=== PATIENT | female | born 1975 | race Caucasian/White ===

== ENCOUNTER 2016-08-20 16:41 | Emergency (ER) | payer OTHER ==
[~2016-08-20] VITALS: Ht 160 cm; Wt 104.5 kg
[~2016-08-20 16:41] MED LIST: BACTROBAN 22GM22 GM TP; CEFTIN 250250 MG/TAB PO; LEVAQUIN 2250 MG/TAB; LEVAQUIN 2250 MG/TAB PO; LOMOTIL 0.025 M1 TAB PO; LORTAB 7.5/5001 TAB PO; MACROBID 1100 MG/CAP PO; MS CONTIN 660 MG/TAB PO; MULTIPLE VITAMI1 TAB PO; NEXIUM 20MG20 MG PO; NORCO 325 MG-101 TAB PO; NORCO 325 MG-51 TAB PO; NORCO 325 MG-7.1 TAB; NORCO 325 MG-7.1 TAB PO; PERCOCET 325 MG1 TA2 PO; PERCOCET 325 MG1 TAB PO; PHENERGAN 25 TA25 MG PO; PHENERGAN25 MG RC; PREMARIN 0.60.625 M1 PO; PREMARIN0.45 MG PO; VITAMIN D 400400 IU PO; ZOFRAN 4MG T4 MG/TAB PO
[2016-08-20 16:47] VITALS: TEMP 99.6
[2016-08-20] MEDS ORDERED: PRIL40 PO (16:52)
[2016-08-20 17:42] LABS: BASO % 0.4 % (0.0-2.0); EOS # 0.1 (0.0-0.7); EOS % 0.7 % (0-4.0); GRAN % 60.4 % (42.2-75.2); HEMOGLOBIN 15.3 g/dl (12.5-16.0); LYMPH # 2.7 (1.2-3.4); LYMPH % 32.2 % (20.0-51.0); MEAN CELL VOLUME 90 fl (80.0-100.0); MEAN CORPUSCULAR HEMOGLOBIN 29 pg (27.0-31.0); MEAN CORPUSCULAR HGB CONC 32 g/dl (33.0-37.0); MEAN PLATELET VOLUME 9.7 fl (7.4-10.4); MONO # 0.5 (0.1-0.6); MONO % 5.9 % (1.7-9.3); PLATELET COUNT 290 K/mm3 (130-400); RED BLOOD COUNT 5.34 M/mm3 (4.10-5.30); REDCELL DISTRIBUTION WIDTH-CV 14.1 % (11.5-14.5); WHITE BLOOD COUNT 8.3 K/mm3 (4.8-10.8)
[2016-08-20 17:48] LABS: PH 6 (5-8); URINE APPEARANCE Hazy; URINE BACTERIA None Seen /hpf; URINE BILIRUBIN Negative (NEGATIVE); URINE BLOOD Negative (NEGATIVE); URINE COLOR Yellow; URINE GLUCOSE Negative (NEGATIVE); URINE KETONE Negative (NEGATIVE); URINE UROBILINOGEN Negative (NEGATIVE); URINE WBC 0-2 /hpf
[2016-08-20 17:53] LABS: ALBUMIN 4.2 gm/dL (3.5-5.0); BILIRUBIN,TOTAL 0.8 mg/dL (0.0-1.0); C-REACTIVE PROTEIN 0.8 mg/dL (0.0-0.9); CALCIUM 9.2 mg/dL (8.4-10.2); CREATININE, serum 0.76 mg/dL (0.52-1.25); POTASSIUM 3.6 mmol/L (3.4-5.0); TOTAL PROTEIN 7.8 gm/dL (6.4-8.2)
[2016-08-20] MEDS ORDERED: NORCO 325 MG-7.1 TAB PO (19:45)
[2016-08-20 19:53] VITALS: BP 118/79; PULSE 110
[2016-08-21] MEDS ORDERED: PHENERGAN 25 TA25 MG PO (11:51)
[2016-08-21] MEDS ORDERED: PERCOCET 325 MG1 TA2 PO (11:51)
== END 2016-08-20 19:54 | disposition home or self-care (01) ==
LOC: COL.ER 16:41
PROVIDERS: Nurse Practitioner
DX: R10.32 Left lower quadrant pain (principal)
CPT/HCPCS: J1170; J2405; J7030; Q9967

== ENCOUNTER 2016-08-21 10:09 | Emergency (ER) | payer OTHER ==
[~2016-08-21] VITALS: Ht 160 cm; Wt 104.5 kg
[~2016-08-21 10:09] MED LIST changes: +PRIL40 PO
[2016-08-21 10:14] VITALS: BP 122/83; PULSE 109; TEMP 97.7
[2016-08-21 11:11] LABS: BASO % 0.5 % (0.0-2.0); EOS # 0.1 (0.0-0.7); EOS % 1.5 % (0-4.0); GRAN # 4.4 (1.4-6.5); GRAN % 66.6 % (42.2-75.2); HEMATOCRIT 45.2 % (37.0-47.0); LYMPH # 1.7 (1.2-3.4); LYMPH % 25.8 % (20.0-51.0); MEAN CELL VOLUME 92 fl (80.0-100.0); MEAN CORPUSCULAR HEMOGLOBIN 29 pg (27.0-31.0); MEAN CORPUSCULAR HGB CONC 31 g/dl (33.0-37.0); MEAN PLATELET VOLUME 9.7 fl (7.4-10.4); MONO # 0.4 (0.1-0.6); MONO % 5.4 % (1.7-9.3); PLATELET COUNT 276 K/mm3 (130-400); RED BLOOD COUNT 4.91 M/mm3 (4.10-5.30); WHITE BLOOD COUNT 6.7 K/mm3 (4.8-10.8)
[2016-08-21 11:25] LABS: ADJUSTED CALCIUM 8.8 mg/dL (8.4-10.2); ALBUMIN 4.1 gm/dL (3.5-5.0); BILIRUBIN,TOTAL 0.9 mg/dL (0.0-1.0); CALCIUM 8.9 mg/dL (8.4-10.2); CREATININE, serum 0.71 mg/dL (0.52-1.25); POTASSIUM 3.6 mmol/L (3.4-5.0); TOTAL PROTEIN 7.5 gm/dL (6.4-8.2)
[2016-08-21] MEDS ORDERED: PERCOCET 325 MG1 TA2 PO (11:51)
[2016-08-21] MEDS ORDERED: PHENERGAN 25 TA25 MG PO (11:51)
== END 2016-08-21 12:01 | disposition home or self-care (01) ==
LOC: COL.ER 10:09
PROVIDERS: Nurse Practitioner
DX: R10.32 Left lower quadrant pain (principal)
CPT/HCPCS: J2550

== ENCOUNTER 2016-10-23 17:28 | Emergency (ER) | payer OTHER ==
[~2016-10-23] VITALS: Ht 160 cm; Wt 104.5 kg
[2016-10-23 17:30] VITALS: TEMP 98.5
[2016-10-23 18:04] LABS: PH 6 (5-8); URINE APPEARANCE Cloudy; URINE BILIRUBIN Negative (NEGATIVE); URINE BLOOD 1+ (NEGATIVE); URINE COLOR Yellow; URINE GLUCOSE Negative (NEGATIVE); URINE KETONE Negative (NEGATIVE); URINE UROBILINOGEN Negative (NEGATIVE)
[2016-10-23 18:13] LABS: URINE RBC 0-2 /hpf; URINE WBC >50 /hpf
[2016-10-23 18:14] LABS: SQUAMOUS EPITHELIAL 0-2 /hpf; URINE BACTERIA Many /hpf
[2016-10-23 18:16] LABS: BASO % 0.3 % (0.0-2.0); EOS % 0.3 % (0-4.0); GRAN # 8.1 (1.4-6.5); GRAN % 70.6 % (42.2-75.2); HEMATOCRIT 47.3 % (37.0-47.0); HEMOGLOBIN 15.4 g/dl (12.5-16.0); LYMPH # 2.7 (1.2-3.4); LYMPH % 23.3 % (20.0-51.0); MEAN CELL VOLUME 89 fl (80.0-100.0); MEAN CORPUSCULAR HEMOGLOBIN 29 pg (27.0-31.0); MEAN CORPUSCULAR HGB CONC 33 g/dl (33.0-37.0); MEAN PLATELET VOLUME 9.3 fl (7.4-10.4); MONO # 0.6 (0.1-0.6); MONO % 5.2 % (1.7-9.3); PLATELET COUNT 274 K/mm3 (130-400); RED BLOOD COUNT 5.31 M/mm3 (4.10-5.30); REDCELL DISTRIBUTION WIDTH-CV 14.3 % (11.5-14.5); WHITE BLOOD COUNT 11.5 K/mm3 (4.8-10.8)
[2016-10-23 18:43] LABS: ADJUSTED CALCIUM 8.6 mg/dL (8.4-10.2); ALBUMIN 4.3 gm/dL (3.5-5.0); BILIRUBIN,TOTAL 0.7 mg/dL (0.0-1.0); C-REACTIVE PROTEIN 0.9 mg/dL (0.0-0.9); CALCIUM 8.8 mg/dL (8.4-10.2); CREATININE, serum 0.62 mg/dL (0.52-1.25); POTASSIUM 3.4 mmol/L (3.4-5.0); TOTAL PROTEIN 7.7 gm/dL (6.4-8.2)
[2016-10-23 18:54] LABS: AMPHETAMINE URINE NEGATIVE; BARBITURATES URINE NEGATIVE; BENZODIAZEPINES URINE POSITIVE; BUPRENORPHINE URINE NEGATIVE; METHADONE URINE NEGATIVE; OPIATES URINE NEGATIVE; PHENCYCLIDINE URINE NEGATIVE; PROPOXYPHENE URINE NEGATIVE; THC CANNABINOIDS URINE NEGATIVE
[2016-10-23 18:55] LABS: OXYCODONE URINE POSITIVE
[2016-10-23] MEDS ORDERED: CIPRO 500MG TA500 MG PO (19:26)
[2016-10-23 20:02] VITALS: BP 139/92; PULSE 110
== END 2016-10-23 20:04 | disposition home or self-care (01) ==
LOC: COL.ER 17:28
PROVIDERS: Emergency Medicine; Physician Assistant
DX: N39.0 Urinary tract infection, site not specified (principal); R10.32 Left lower quadrant pain; G89.29 Other chronic pain; R11.0 Nausea
CPT/HCPCS: J2405; J2550; J7030